=== PATIENT | male | born 1965 | race Caucasian/White ===

== ENCOUNTER 2018-02-24 13:06 | Emergency (ER) | payer MEDICARE, OTHER ==
[2018-02-24 13:12] VITALS: BP 130/74; PULSE 79; TEMP 98.8; BMI 34.8
--- NOTE | 2018-02-24 13:20 | PDOC ---
History of Present Illness - General Chief Complaint: Pain, Acute Stated Complaint: LEFT ANKLE TENDER/ SWELLING Time Seen by Provider: 02/24/18 13:08 History Source: Patient Exam Limitations: No Limitations - History of Present Illness Initial Comments: 02/24/18 13:17 52 yo M c/ hx brain aneurysm s/p clipping, CAD s/p [place], HTN p/w nontraumatic left ankle pain and swelling. The pt reports two days worth of ankle pain and swelling. No traumas or injuries. Did use new insoles for his shoes starting 1 month ago. Denies prior hx of gout or pseudogout. No fevers, chills. No sick contacts. Developed left ankle swelling and mild lateral malleolus pain. Pt's sister was concerned for DVT so patient into ED. Past History - Past Medical History Allergies/Adverse Reactions: Allergies Allergy/AdvReac Type Severity Reaction Status Date / Time No Known Allergies Allergy Verified 02/24/18 13:11 Home Medications: Ambulatory Orders Aspirin [Aspir 81] 81 mg PO DAILY 06/18/13 Oxycodone HCl/Acetaminophen [Percocet 10-325 Mg Tablet] 1 each PO TID PRN #90 tablet 06/25/14 Cholecalciferol (Vitamin D3) [Vitamin D-3] 2,000 unit PO DAILY tablet 01/06/16 Sildenafil Citrate [Viagra] 100 mg PO 1/2 tab PRN tablet 04/02/16 Tadalafil [Cialis] 5 mg PO DAILY tablet 10/29/16 Mupirocin Calcium [Mupirocin] 30 gm TP DAILY PRN 05/03/17 Atenolol 25 mg PO PM tablet 06/20/17 Lisinopril 20 mg PO AM tablet 06/20/17 Naproxen 500 mg PO BID PRN #20 tablet 02/24/18 COPD: No Other medical history: 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 HEAD, EYES, EARS, NOSE AND THROAT: No change in vision. No ear pain or discharge. No sore throat. CARDIOVASCULAR: No chest pain or shortness of breath. RESPIRATORY: No cough, wheezing, or hemoptysis. GASTROINTESTINAL: No abdominal pain, nausea, vomiting, diarrhea, or decreased PO intolerance. GENITOURINARY: No dysuria, frequency, or change in urination. MUSCULOSKELETAL: No neck or back pain. + Left ankle pain and swelling. SKIN: No rash NEUROLOGIC: No headache, vertigo, loss of consciousness, or change in strength/ sensation. ENDOCRINE: No increased thirst. No abnormal weight change. HEMATOLOGIC/LYMPHATIC: No anemia, easy bleeding, or history of blood clots. ALLERGIC/IMMUNOLOGIC: No hives or skin allergy. *Physical Exam - Vital Signs Last Vital Signs Temp Pulse Resp BP Pulse Ox 98.8 F 79 16 130/74 97 02/24/18 13:07 02/24/18 13:07 02/24/18 13:07 02/24/18 13:07 02/24/18 13:07 - Physical Exam Comments: 02/24/18 13:19 GENERAL: Awake, alert, and fully oriented, in no acute distress. HEAD: No signs of trauma EYES: PERRLA, EOMI, sclera anicteric, conjunctiva clear ENT: Auricles normal inspection, hearing grossly normal, nares patent NECK: Normal ROM, supple EXTREMITIES: Normal range of motion, no edema. No clubbing or cyanosis. No cords, erythema, or tenderness NEUROLOGICAL: Cranial nerves II through XII grossly intact. LLE: sensation intact throughout. FROM left ankle. Mild edema and mild tenderness to palpation to left lateral malleolus. 2+ DP pulse SKIN: Warm, Dry, normal turgor, no rashes or lesions noted. ED Treatment Course - RADIOLOGY Radiology Studies Ordered: Category Date Time Status ANKLE-LEFT [RAD] Stat Radiology 02/24/18 13:16 Ordered DUPLEX VASCUL US-1 LEG [US] Stat Ultrasound 02/24/18 13:16 Ordered Medical Decision Making - Medical Decision Making 02/24/18 13:20 Vital Signs Temp Pulse Resp BP Pulse Ox 98.8 F 79 16 130/74 97 02/24/18 13:07 02/24/18 13:07 02/24/18 13:07 02/24/18 13:07 02/24/18 13:07 R/o DVT and underlying bony pathology with ultrasound and duplex. However, must consider gout/pseudogout. There is not enough fluid or effusion in ankle to perform arthrocentesis. NSAIDs, elevation, compression. I do clinically NOT suspect septic joint at this time 02/24/18 15:46 Radiograph and ultrasound reviewed. No acute findings. Weight bearing as tolerated. NSAIDS, elevation, ICE Follow up with PMD. It may be possible that the patient may have joint pain because of the new insoles. Either way, patient states will follow up with PMD I discussed the physical exam findings, ancillary test results and final diagnoses with the patient. I answered all of the patient's questions. The patient was satisfied with the care received and felt comfortable with the discharge plan and treatment plan. The patient will call their primary care physician within 24 hours to arrange follow-up and will return to the Emergency Department with any new, persistant or worsening symptoms. *DC/Admit/Observation/Transfer Diagnosis at time of Disposition: Ankle pain, left - Discharge Dispostion Disposition: HOME Condition at time of disposition: Stable Decision to Admit order: No - Prescriptions Prescriptions: Naproxen 500 mg PO BID PRN #20 tablet PRN Reason: Pain - Referrals - Patient Instructions Printed Discharge Instructions: DI for Ankle Pain Additional Instructions: Your radiograph and ultrasound is negative for fracture or blood clot. Wrap your ankle and elevate the leg as much as you can. Take 500 mg naproxen every 12 hours as needed for pain. Elevate the leg as much as you can. Follow up with your primary care physician. Please be mindful of the shoes that you are wearing and keep track. This may potentially be the cause of your ankle pain. If you have uncontrollable pain or swelling, please return to the ER for further evaluation. - Post Discharge Activity
[2018-02-24] MEDS ORDERED: NAPROXEN 500 MG TABLET (FP) PO ONE (14:34)
[2018-02-24] MEDS ORDERED: NAPROXEN 500 MG TABLET (FP) ONE (14:37)
== END 2018-02-24 14:40 | disposition home or self-care (01) ==
LOC: FER 13:06
DX: M25.572 Pain in left ankle and joints of left foot (principal); Z87.891 Personal history of nicotine dependence; Z95.5 Presence of coronary angioplasty implant and graft; I25.2 Old myocardial infarction; Z85.07 Personal history of malignant neoplasm of pancreas
CPT/HCPCS: 73610-TC-LT-FY; 93971-TC; 99282-25

== ENCOUNTER 2020-10-10 14:02 | Emergency (ER) | payer OTHER | END 2020-10-10 14:48 | disposition home or self-care (01) | LOC: JVIRT 14:02 | DX: U07.1 COVID-19 (principal) | CPT/HCPCS: C9803; Q3014-GT; U0003 ==